=== PATIENT | male | born 1945 | race Caucasian/White ===

== ENCOUNTER → 2017-04-15 15:31 | Outpatient (CLI) | payer MEDICARE, OTHER, SELFPAY ==
--- NOTE | 2017-04-15 16:00 | MRI_ITS ---
STUDY: MRI LUMBAR SPINE WITHOUT CONTRAST REASON FOR EXAM: Male, 71 years old. RIGHT leg pain TECHNIQUE: Standardized fat and water weighted pulse sequences were obtained in the sagittal and axial planes. COMPARISON: None FINDINGS: T12-L1: Normal endplates. Normal disc height, hydration and morphology. Normal bilateral facet joints. Normal central canal and bilateral lateral recesses. Normal bilateral intervertebral neural foramina. There is straightening of the normal lumbar lordosis. There is no substantial scoliosis. Normal conus medullaris that terminates at the L1 level. L1-2: There is moderate loss of disc height. There is RIGHT lateral disc bulging causing severe RIGHT foraminal stenosis. There is mild spinal stenosis and mild LEFT foraminal stenosis. There is moderate bilateral facet hypertrophy. L2-3: There is bilateral facet hypertrophy. There is NO disc bulge or herniation. There is NO significant spinal stenosis. There is moderate bilateral foraminal stenosis. L3-4: There is bilateral facet hypertrophy. There is NO disc bulge or herniation. There is NO spinal stenosis. There is moderate bilateral foraminal stenosis. L4-5: There is grade 1 anterior spondylolisthesis due to facet arthropathy. There is broad-based disc bulging. There is moderate spinal stenosis. There is severe bilateral foraminal stenosis. L5-S1: There is mild disc bulging. There is bilateral facet hypertrophy. There is NO spinal stenosis. There is severe bilateral foraminal stenosis. Paraspinal soft tissues are unremarkable. MRI/Spine Lumbar (Routine) IMPRESSION: There is NO fracture. There is NO disc herniation or cord compression. There are multilevel degenerative changes as described causing stenosis as described. There is grade 1 anterior spondylolisthesis of L4 over L5 due to facet arthropathy. Electronically Signed: Jose Barrera MD at 7:06 EST , Service support ,
== END ==
PROVIDERS: Family Provider Family Medicine; PCP Family Medicine
DX: M51.06 Intervertebral disc disorders with myelopathy, lumbar region (principal); S32.009A Unspecified fracture of unspecified lumbar vertebra, initial encounter for closed fracture; G90.09 Other idiopathic peripheral autonomic neuropathy
CPT/HCPCS: 72148

== ENCOUNTER → 2018-07-15 | Outpatient (CLI) | payer MEDICARE, OTHER, SELFPAY ==
--- NOTE | 2018-07-15 09:28 | RAD_ITS ---
STUDY: X-RAY - LUMBAR SPINE REASON FOR EXAM: Male, 72 years old. Radiculopathy with sciatica down the left leg TECHNIQUE: 5 view(s) of the lumbar spine were obtained. COMPARISON: None FINDINGS: Normal lumbar lordosis. There is no substantial scoliosis. There is a normal alignment of the vertebrae. There is multilevel endplate spondylosis of the lumbar vertebrae. There is multi-level degenerative disc disease with multi-level disc space narrowing. There is no demonstrated fracture. The soft tissue structures are unremarkable. RAD/L/S Spine Min 4 Views IMPRESSION: Degenerative changes of the spine, as detailed above. Electronically Signed: Erlin Whitaker DO at 9:16 EDT Tel , Service support ,
== END | disposition home or self-care (01) ==
LOC: RAD 09:28
PROVIDERS: Family Provider Family Medicine; PCP Family Medicine; Referring Provider Anesthesiology Pain Medicine; Visit Provider Anesthesiology Pain Medicine
DX: M51.37 Other intervertebral disc degeneration, lumbosacral region (principal); M54.17 Radiculopathy, lumbosacral region
CPT/HCPCS: 72110

== ENCOUNTER → 2018-09-14 | Outpatient (CLI) | payer MEDICARE, OTHER, SELFPAY ==
--- NOTE | 2018-09-14 07:56 | US_ITS ---
PROCEDURES: ULTRASOUND AORTA REASON FOR EXAM: Male, 73 years old. AAA screening. TECHNIQUE: Ultrasound evaluation of the aorta was performed with real-time and static miller-scale imaging. Imaging was limited by patient body habitus COMPARISON: None. FINDINGS: There is no elongation or tortuosity of the abdominal aorta. Aorta measures: Proximal 1.6 cm. Middle 1.9 cm. Distal 2.0 cm. Aorta measure transversely: Proximal 1.7 cm. Middle 2.2 cm. Distal 1.7 cm. Right iliac artery patent with flow evident on color Doppler. The margins of the vessel could not be adequately demonstrated for diameter measurements, however. Left iliac artery patent with flow evident on color Doppler. The margins of the vessel could not be adequately demonstrated for diameter measurements, however. US/Aorta IMPRESSION: Ultrasound evaluation of the abdominal aorta limited by patient body habitus. 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 Electronically Signed: Gume Nayak MD at 13:07 EDT , Service support ,
== END | disposition home or self-care (01) ==
LOC: US 07:53
PROVIDERS: Family Provider Family Medicine; PCP Family Medicine
DX: I71.4 Abdominal aortic aneurysm, without rupture (principal)
CPT/HCPCS: 76775

== ENCOUNTER → 2018-09-25 | Outpatient (CLI) | payer MEDICARE, OTHER, SELFPAY | END | disposition home or self-care (01) | LOC: SL 20:54 | PROVIDERS: Family Provider Family Medicine; PCP Family Medicine | DX: G47.33 Obstructive sleep apnea (adult) (pediatric) (principal) | CPT/HCPCS: 95810; 95811 ==

== ENCOUNTER → 2018-10-07 | Outpatient (CLI) | payer MEDICARE, OTHER, SELFPAY ==
--- NOTE | 2018-10-07 12:38 | VDLE_ITS ---
Reason For Study: DVT RIGHT LEFT GSV is normal. GSV is normal. CFV is compressible, spontaneous, phasic, CFV is compressible, spontaneous, phasic, competent and demonstrates normal competent, and demonstrates normal augmentation. augmentation. FV is compressible, spontaneous, phasic, FV is compressible, spontaneous, phasic, competent and demonstrates normal competent and demonstrates normal augmentation. augmentation. POP V is compressible, spontaneous, phasic, POP V is compressible, spontaneous, phasic, competent and demonstrates normal competent and demonstrates normal augmentation. augmentation. T/P Trunk is compressible. T/P Trunk is compressible. PTV is compressible. PTV is compressible. RT PerV is compressible. LT PerV is compressible. Procedure Exam performed in department. A preliminary report was called and/or faxed to Call @ [phone] and left message, not in office on friday. Interpretation Summary Deep veins of the lower extremities are bilaterally patent and compressible segmentally. There is no evidence of deep vein thrombosis on either side. Valvular competence appears intact within the proximal deep venous systems bilaterally. The greater saphenous veins appear bilaterally patent and compressible segmentally. Ordering Physician: MARGARET BOYKIN Referring Physician: Jay Cat M.D. Performed By: Michelle Gomes RVT
== END | disposition home or self-care (01) ==
LOC: SL 12:35
PROVIDERS: Family Provider Family Medicine; PCP Family Medicine
DX: I82.423 Acute embolism and thrombosis of iliac vein, bilateral (principal); G47.33 Obstructive sleep apnea (adult) (pediatric)
CPT/HCPCS: 93970; 98960; G0463

== ENCOUNTER → 2018-11-17 | Outpatient (CLI) | payer MEDICARE, OTHER, SELFPAY | END | disposition home or self-care (01) | PROVIDERS: Family Provider Family Medicine; PCP Family Medicine | DX: G47.33 Obstructive sleep apnea (adult) (pediatric) (principal) | CPT/HCPCS: 95811 ==

== ENCOUNTER → 2019-03-26 10:24 | Outpatient (CLI) | payer MEDICARE, OTHER, SELFPAY ==
--- NOTE | 2019-03-26 10:27 | RAD_ITS ---
STUDY: X-RAY - PELVIS AND RIGHT HIP REASON FOR EXAM: Male, 73 years old. RIGHT HIP PAIN TECHNIQUE: 3 views of the pelvis and hip. COMPARISON: None. FINDINGS: There is a non-specific bowel gas pattern. Normal visualized soft tissue structures. Normal bilateral iliac wings, sacroiliac joints and visualized sacrum. Normal bilateral superior and inferior pubic rami. Normal pubic symphysis. Normal bilateral ischial tuberosities. Normal visualized femoral head. Normal acetabulum. Normal hip joint. RAD/HIP, UNI W/ Pelvis 2-3 Views IMPRESSION: Normal x-ray examination of the pelvis and hip. Electronically Signed: Greyson Lamar DO at 8:05 EST Tel [phone], Service support ,
== END ==
PROVIDERS: Family Provider Family Medicine; PCP Family Medicine; Referring Provider Nurse Practitioner Family; Visit Provider Nurse Practitioner Family
DX: M25.551 Pain in right hip (principal)
CPT/HCPCS: 73502

== ENCOUNTER → 2022-11-19 | Outpatient (CLI) | payer MEDICARE, OTHER, SELFPAY ==
--- NOTE | 2022-11-19 08:27 | CT_ITS ---
STUDY: CT ABDOMEN AND PELVIS WITH CONTRAST REASON FOR EXAM: Male, 77 years old. LT TESTICULAR PAIN RADIATION DOSAGE (If Supplied By Facility): CTDIvol = ( 17.07 ) mGy, DLP = ( 1333.95 ) mGycm TECHNIQUE: IV 100mL [id number]-[id number] was administered. Transaxial images were obtained from the dome of the diaphragm to the symphysis pubis. Multiplanar coronal and sagittal images were reformatted. Individualized Dose Optimization Techniques Were Used For This CT. COMPARISON: No prior examinations are available for comparison. FINDINGS: The visualized lung bases are unremarkable. The visualized portions of the heart are within normal limits. Coronary calcifications. Unremarkable liver. There are surgical clips in the gallbladder fossa consistent with a prior cholecystectomy. Normal spleen. There is diffuse atrophy of the pancreas. Normal bilateral adrenal glands. 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 No evidence of hydronephrosis. Nonspecific mild perinephric stranding. Normal visualized stomach. Normal in caliber in caliber small bowel loops. Fecal retention. Diverticulosis without evidence of acute diverticulitis. The appendix is visualized and appears normal. Normal abdominal aorta. No retroperitoneal adenopathy. Circumferential thickening of the bladder wall probably due to underdistention. Prominent prostate. Balloon in the right side of the lower pelvis of undetermined etiology and may represent penile prosthesis pump. Normal abdominal wall. Multilevel degenerative changes of the spine. Grade 1 retrolisthesis of L5 with respect to L4 and S1. CT/Abdomen/Pelvis W IV Cont ONLY IMPRESSION: 1. No focal acute inflammatory process. 2. Circumferential thickening of the bladder wall probably due to underdistention. Cystitis less likely. 3. Prominent prostate. 4. Balloon on the right side of the lower pelvis could represent partially visualized penile prosthesis pump. Electronically Signed: Hu Chaney MD at 10:59 EDT ,
[2022-11-19 08:56] LABS: CREATININE FINGERSTICK < 0.9 mg/dL (0.70-1.30); EGFR FINGERSTICK > 60.0000 mL/min (>60)
== END | disposition home or self-care (01) ==
PROVIDERS: PCP Preventive Medicine Occupational Medicine; Referring Provider Urology; Visit Provider Urology
DX: N50.812 Left testicular pain (principal)
CPT/HCPCS: 74177; Q9967

== ENCOUNTER → 2022-11-26 | Outpatient (CLI) | payer MEDICARE, OTHER, SELFPAY ==
[2022-11-26 10:44] LABS: PSA,Total - Annual Screen 1.63 ng/mL (0.00-4.00)
== END | disposition home or self-care (01) ==
LOC: LAB 09:34
PROVIDERS: PCP Preventive Medicine Occupational Medicine; Referring Provider Urology; Visit Provider Urology
DX: Z12.5 Encounter for screening for malignant neoplasm of prostate (principal)
CPT/HCPCS: 36415; 84153; G0103

== ENCOUNTER → 2023-05-14 | Outpatient (CLI) | payer MEDICARE, OTHER, SELFPAY ==
--- OUTSIDE RECORDS SUMMARY | 2023-05-14 06:16 | XMS RPT_ITS | CCD ---
Author Name Unknown Address [address] [place] [address] Organization [facility] Care Team Providers Care X Ray Examiner Of Aircraft Name Role Phone Jay Cat Unavailable Unavailable Jay Cat Unavailable Unavailable MANDY SENIOR Unavailable Unavailable ISAK WALLIS Unavailable Unavailable JAY CAT Unavailable Unavailable JAY CAT Unavailable Unavailable ANDREWS JURADO JR. Unavailable Unavailab ANDREWS Dye JR. Unavailable Unavailab JAY Hines Unavailable Unavailable JAY CAT Unavailable Unavailable Jay Cat Referring Unavailable Jay Cat Primary Care Unavailable Laly Iniguez Attending Unavailable OBEY HOWELL DO Primary Care Physician [phone] Max Hooks MD Unavailable [phone] [facility] Primary Care Provider [facility] Primary Care Provider MAURILIO SALDANA Attending Unavailable MAURILIO SALDANA Referring Unavailable LAMBERTNABILA MASTERSON Attending Unavailable LAMBERT, NABILA Referring Unavailable LAMBERT, NABILA Referring Unavailable LAMBERT, NABILA Referring Unavailable LAMBERT, NABILA Referring Unavailable LAMBERT, NABILA Referring Unavailable OBEY HOWELL DO Primary Care Physician [phone] OBEY HOWELL DO Attending Unavailable OBEY HOWELL DO Primary Care Unavailable OBEY HOWELL DO Attending Unavailable OBEY HOWELL DO Primary Care Unavailable Max Hooks MD Unavailable [phone] [facility] Primary Care Provider Allergies Allergy Classification Reported Allergen(s) Allergy Type Date of Onset Reaction(s) Facility (4 sources) Baclofen; Translations: [baclofen] Drug Allergy Clouded consciousness (finding) [facility] Work Phone: Medications Current Medications Medication Drug Class(es) Dates Sig (Normalized) Sig (Original) azelastine hydrochloride 0.137 mg/actuat metered dose nasal spray (14 sources) Histamine-1 Receptor Antagonist Start: 01-23-2021 azelastine 137 mcg/inh (0.1%) nasal spray Dose = 2 spray(s), Intranasal, BID, # 3 EA, 3 Refill(s), Pharmacy: [facility], 176, cm, 01/22/21 9:30:00 EST, Height, kg, 01/22/21 9:30:00 EST, Dosing Weight Start Date: 01/23/21 Status: Ordered Completed/Discontinued Medications Medication Drug Class(es) Dates Sig (Normalized) Sig (Original) acetaminophen 325 mg / oxyCODONE hydrochloride 7.5 mg oral tablet (16 sources) Opioid Agonist Start: 03-14-2022 acetaminophen-oxyc odone 325 mg-7.5 mg oral tablet Dose = 1 tab(s), Oral, q6h, PRN for pain, 0 Refill(s), 121 Start Date: 03/14/22 Status: Ordered Problems Active Problems Problem Classification Problem Date Documented Date Episodic/Chronic Abdominal pain (6 sources) Lower abdominal pain, unspecified; Translations: [Abdominal pain] Onset: 12-19-2017 07-17-2021 Episodic Allergic reactions (6 sources) Allergy status to other antibiotic agents status; Translations: [Allergic disposition] Onset: 12-19-2017 01-22-2021 Episodic Coronary atherosclerosis and other heart disease (6 sources) Atherosclerotic heart disease of andreafski coronary artery without angina pectoris; Translations: [Coronary arteriosclerosis] Onset: 12-19-2017 06-24-2013 Chronic Past or Other Problems Problem Classification Problem Date Documented Date Episodic/Chronic Abdominal hernia (12 sources) Left inguinal hernia ; Translations: [Unilateral inguinal hernia, without obstruction or gangrene, not specified as recurrent] Onset: 04-04-2015 04-04-2015 Episodic Bacterial infection; unspecified site (2 sources) Personal history of Methicillin resistant Staphylococcus aureus infection; Translations: [Personal history of methicillin resis staph infection] Onset: 12-19-2017 Episodic Nonspecific chest pain (2 sources) Chest pain, unspecified; Translations: [Chest pain, unspecified] Onset: 11-03-2016 Episodic Other aftercare (2 sources) rat exterminator (current) use of insulin; Translations: [shelter (current) use of insulin] Onset: 12-19-2017 Episodic Other male genital disorders (12 sources) Hemospermia; Translations: [Hematospermia] Onset: 09-11-2016 09-11-2016 Episodic Other nervous system disorders (12 sources) Numbness of face; Translations: [Anesthesia of skin] Onset: 10-29-2019 11-04-2019 Episodic Residual codes; unclassified (2 sources) Acquired absence of other specified parts of digestive tract; Translations: [Acquired absence of other specified parts of digestive tract] Onset: 12-19-2017 Episodic Screening and history of mental health and substance abuse codes (2 sources) Personal history of nicotine dependence; Translations: [Personal history of nicotine dependence] Onset: 12-19-2017 Episodic Superficial injury; contusion (2 sources) Contusion of unspecified front wall of thorax, initial encounter; Translations: [Contusion of unspecified front wall of thorax, init encntr] Onset: 12-19-2017 Episodic Unclassified (2 sources) Procedure and treatment not carried out due to patient leaving prior to being seen by health care provider; Translations: [Proc/trtmt not crd out d/t pt lv bef seen by [facility] care prov] Onset: 11-03-2016 Episodic Unclassified (1 source) INFECTED SURGICAL WOUND/CELLULITIS Onset: 09-11-2016 Results Test Name Value Interpretation Reference Range Facil ity Vital Signs Date Time Vital Sign Value Performing Clinician Geovanna mcdonough 11-29-2021 13:21-0400 Body height 180.3 cm Nabila Lambert APRN.CNP Work Phone: [facility] 11-29-2021 13:21-040 Body weight 122.47 kg Nabila Lambertjean FLOOD Work Phone: [facility] 11-29-2021 13:21-0400 Diastolic blood pressure 70 mm[Hg] Nabila Lambertjean FLOOD Work Phone: [facility] 11-29-2021 13:21-0400 Heart rate 70 /min Nabila Lambert APRN.CNP Work Phone: [facility] 11-29-2021 13:21-0400 Systolic blood pressure 118 mm[Hg] Nabila Lambert APRN.CLOD PULLER Work Phone: [facility] 11-01-2021 08:51-0400 Body height 180.3 cm Maurilio Saldana MD Work Phone: [facility] 11-01-2021 08:51-0400 Body weight 121.56 kg Maurilio Saldana MD Work Phone: [facility] 11-01-2021 08:51-0400 Diastolic blood pressure 72 mm[Hg] Maurilio Saldana MD Work Phone: [facility] 11-01-2021 08:51-0400 Heart rate 90 /min Maurilio Saldana MD Work Phone: [facility] 11-01-2021 08:51-0400 Systolic blood pressure 128 mm[Hg] Maurilio Saldana MD Work Phone: [facility] Encounters Encounter Date Encounter Type Care Provider Facility Start: 05-07-2023 Patient encounter procedure [facility] Provider [facility] Department Start: 04-10-2023 End: 04-11-2023 ambulatory OBEY HOWELL DO Facility:B Start: 10-25-2022 End: 10-26-2022 ambulatory OBEY HOWELL DO Facility:[facility] Start: 03-14-2022 End: 03-14-2022 Patient encounter procedure OBEY HOWELL DO [facility] Start: 12-31-2021 Telephone encounter Nabila Lambert APRN.CLOD PULLER Work Phone: [facility] Procedures Date Procedure Procedure Detail Performing Clinician Start: 03-03-2018 Cataract surgery OBEY HOWELL DO Plan of Treatment Date Care Activity Detail Author Start: 12-20-2027 Urine microalbumin profile DTaP,Tdap,Td Vaccine (2 - Td or Tdap) [facility] Start: 03-17-2023 Advance Directive Discussion Advance Directive Discussion [facility] Start: 03-17-2023 Depression Assessment Depression Ass essment [facility] Start: 11-15-2022 Covid-19 Vaccine () Covid-19 Vaccine () [facility] Start: 11-15-2022 Influenza vaccination Influenza Vacc ine (#1) [facility] Start: 10-31-2022 DIABETES SCREEN [facility] Start: 10-31-2022 Diabetes Screening Diabetes Screenin g [facility] Start: 12-07-2021 End: 02-06-2022 CREATININE BLD CREATININE BLD Lab STAT Abnormal x-ray of abdomen Expected: 12/07/2021, Expires: 02/06/2022 [facility] Work Phone: Immunizations Immunization Date Immunization Notes Care Provider Bhaskar mohan 12-19-2021 influenza, high dose seasonal, preservative-free OBEY HOWELL DO [facility] 12-19-2021 influenza virus vaccine, unspecified formulation [facility] Provider [facility] 05-25-2020 SARS-CoV-2 (COVID-19 ) mRNA-1273 vaccine [facility] Payers Date Payer Category Payer Medicare [id number] 2014 Private Health Insurance [facility] AAR SUPPLEMENT [id number] 2014-Present [phone] [address] [place] [address] Indemnity [id number] 2013 Private Health Insurance [id number] 1997 Medicare 1997 Medicare [id number] 1945 Unknown [id number] 1945 Unknown [id number] 1945 Unknown [id number] Unknown Social History Date Type Detail Facility Start: 09-14-2018 Never smoked t obacco (finding) [facility] Sex Assigned At Male [facility] Start: 11-01-2021 Tobacco smoking stat us MDIS Ex-smoker [facility] End: 05-05-1975 History of tobacco use Current smoker [facility] End: 05-05-1975 History of tobacco use Cigarette Smoker [facility] Start: 11-01-2021 End: 04-02-2023 Cigarettes smoked current (pack per day) - Reported 2 [facility] Start: 11-01-2021 Tobacco use and exposure Smoke less tobacco non-user [facility] Start: 11-01-2021 End: 11-29-2021 Alcohol intake Current drinker of alcohol (finding) [facility] Start: 10-30-2019 History SDOH Alcohol Comment rare [facility] Start: 11-01-2019 History SDOH Financial 4 [facility] Start: 11-01-2019 History SDOH Food Worry 1 [facility] Start: 11-01-2019 History SDOH Transport Med 2 [facility] Start: 1945 Sex Assigned At Not on file [facility] Start: 10-22-2021 End: 12-07-2021 Exposure to SARS-CoV-2 (event) Not sure [facility] Start: 11-29-2021 End: 04-02-2023 Tobacco use panel [facility] How hard is it for y ou to pay for the very basics like food, housing, medical care, and heating Not very hard [facility] (I/We) worried wheth er (my/our) food would run out before (I/we) got money to buy more. Never true [facility] In the past 12 month s, has lack of transportation kept you from medical appointments or from getting medications? No [facility] Medical Equipment Procedure Code Equipment Code Equipment Origin al Text Equipment Identifier Dates Blood Glucose Te st Strips Start: 08-24-[address]ps Start: 08-24-2019 See Instructions , Dispense Accucheck Guide, #360, UAD QID; tests frequently due to fluctuating blood sugars, # 360 EA, 3 Refill(s), [facility], Diabetes mellitus, 177, cm, 08/24/19 14:58:00 EDT, Height, 122.1, kg, 08/24/19 14:5... Start: 08-24-2019 Prosthesis Ams 7 00 Penile Accessory Kit - [id number] Start: 05-18-2015 Prosthesis Ams 7 00 Ms Pump Inhibizone Penile Preconnect Inflatable - [id number] Start: 05-18-2015 TEST BLOOD SUGAR four times a day for FLUCTUATING BLOOD SUGARS Start: 10-07-2019 Clinical Notes 11-01-2021 to 12-31-2021 Telephone Encounter - [place] Ma - 12/31/2021 3:56 PM EDTTelephone Encounter - Nabila Lambert APRN.CNP - 12/19/2021 9:51 PM EDTTelephone Encounter - Nabila Lambert APRN.CNP - 12/19/2021 2:23 PM EDT Note Date & Type Note Facility 12-31-2021 Miscellaneous Notes Returned patient call, left voicemail to return call as needed. [place] [employer] [facility] documented in this encounter [facility] 12-19-2021 Miscellaneous Notes Patient called back and states that he is currently still taking the 290Linzess having liquid diarrhea and then changed it to every other day with no improvement continued liquid diarrhea. The plan will be to try the 145mcg for the next two weeks. Thanks Nabila Lambert APRN.CNP documented in this encounter [facility] 12-19-2021 Miscellaneous Notes Called patient to discuss lower dose of medication. No answer left my number to call back. Nabila Lambert APRN.CNP documented in this encounter [facility] 12-18-2021 Miscellaneous Notes Spoke with pt again and now he states that he is still having diarrhea doing every other day. He was doing a little better but now he is back to diarrhea. Keturah Alamo Ma I recommend that he use this every other day 290mcg - Nabila Lambert APRN.CHRISTINE Pt notified of CT results. Pt states that the Linzess 290mcg is giving him diarrhea and completely clearing out . He states that he backed it down to every other day and seems to be doing better. Should he just take it every other day and she how he does or give him a weaker strength? Keturah Alamo Ma documented in this encounter [facility] 12-10-2021 Note HNO ID: [id number] Author: RT Trell(R) Service: ? Author Type: Icu Manager Type: Progress Notes Filed: 12/10/2021 12:15 PM Note Text: Radiology Service Progress Note DATE OF SERVICE: December 10, 2021 TIME: 12:14 PM PATIENT IDENTITY VERIFICATION COMPLETED USING TWO (2) STANDARD IDENTIFIERS: Name and Date of confirmed by patient verbally. FALL SCREENING: Has the patient had 2 falls in the last year or 1 fall with injury or currently using an Ambulatory Assistive Device (Walker, Cane, Wheelchair, Crutches, etc.)? No PATIENT GENDER DATA: Male PATIENT RELEVANT IMPLANT DATA REVIEWED: Yes ALLERGIES: Reviewed and unchanged CONTRAST ALLERGY: NO. EXAM: CT -CONTRAST INDUCED NEPHROPATHY RISK FACTORS: Patient age > 60 years CREATININE: Creatinine Date Value Ref Range Status 12/10/2021 0.81 0.73 - 1.22 mg/dL Final 11/01/2019 0.88 0.73 - 1.22 mg/dL Final 10/30/2019 0.75 0.73 - 1.22 mg/dL Final Estimated Glomerular Filtration Rate Date Value Ref Range Status 12/10/2021 91 >=60 mL/min/1.73m? Final Comment: Estimated Glomerular Filtration Rate (eGFR) is calculated using the 2020 CKD-EPI creatinine equation. This equation utilizes serum creatinine, sex, and age as parameters. The creatinine assay has traceable calibration to isotope dilution-mass spectrometry. Refer to KDIGO guidelines for clinical interpretation. In patients with unstable renal function, e.g. those with acute kidney injury, the eGFR may not accurately reflect actual GFR. eGFR- Date Value Ref Range Status 05/16/2015 >60 Final P.O.C.T. RESULTS: POC done: Yes, See Lab Tab December 10, 2021 TREATMENT: N/A PERIPHERAL IV DATA: Ambulatory: A peripheral IV was started in the Left hand with a Angio cath: 22 gauge. RADIOLOGY DEPARTMENT: CT; Exam(s) Completed: Abdomen/Pelvis SIGNATURE: RT Elliot(R) PATIENT NAME: Neo Interiano DATE: December 10, 2021 TIME: 12:14 PM [facility] 12-07-2021 Miscellaneous Notes Thanks done Nabila Lambert APRN.CLOD PULLER Please place order for stat creatinine order for pt , pt appt 12/10/[address] , can you changed the lab order to a stat so the pt can do the labs on the same day please documented in this encounter [facility] 12-05-2021 Miscellaneous Notes Called patient and left VM. Patient has decrease amount of stool burden since taking the Golytely. I have ordered Linzess 290mcg to take first thing in the morning on empty stomach. 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 There was a incidental finding on both XRAYS - Round peripherally calcified 6.5 cm radiodensity projecting over the right pelvis. This is of uncertain definite etiology and either further evaluation with pelvic ultrasound or cross-sectional imaging may be made as clinically indicated. - So I went ahead and ordered a CT of the abd and pelvis. Miryam Dahl documented in this encounter [facility] 12-05-2021 Note HNO ID: [id number] Author: RT Debbie(R) Service: Radiology Author Type: Technologist Type: Progress Notes Filed: 12/05/2021 8:47 AM Note Text: Radiology Service Progress Note PATIENT NAME: Neo Interiano DATE OF SERVICE: December 05, 2021 TIME: 8:34 AM PATIENT IDENTITY VERIFICATION COMPLETED USING TWO (2) IDENTIFIERS: Name and Date of confirmed by patient verbally. FALL SCREENING: Has the patient had 2 falls in the last year or 1 fall with injury or currently using an Ambulatory Assistive Device (Walker, Cane, Wheelchair, Crutches, etc.)? No PATIENT GENDER DATA: Male PATIENT RELEVANT IMPLANT DATA REVIEWED: Yes RADIOLOGY DEPARTMENT: General X-ray: Exam(s) Completed: Abdomen X-Ray: Abdomen PERIPHERAL IV DATA: Not applicable SIGNED BY: RT Debbie(R) December 05, 2021 8:34 AM [facility] 12-04-2021 Miscellaneous Notes Called patient discuss bowel cleanse with Golytely and then repeat XR and then possible start Linzess - Nabila documented in this encounter [facility] 11-29-2021 Note HNO ID: [id number] Author: Conchita Huff RT(R) Service: Nuclear Medicine Author Type: Technologist Type: Progress Notes Filed: 11/29/2021 2:51 PM Note Text: Radiology Service Progress Note PATIENT NAME: Neo Interiano DATE OF SERVICE: November 29, 2021 TIME: 2:38 PM PATIENT IDENTITY VERIFICATION COMPLETED USING TWO (2) IDENTIFIERS: Name and Date of confirmed by patient verbally. FALL SCREENING: Has the patient had 2 falls in the last year or 1 fall with injury or currently using an Ambulatory Assistive Device (Walker, Cane, Wheelchair, Crutches, etc.)? No PATIENT GENDER DATA: Male PATIENT RELEVANT IMPLANT DATA REVIEWED: Not Applicable RADIOLOGY DEPARTMENT: General X-ray: Exam(s) Completed: Abdomen X-Ray: Abdomen PERIPHERAL IV DATA: Not applicable SIGNED BY: RT Huyen(R) November 29, 2021 2:38 PM [facility] 11-29-2021 Note HNO ID: [id number] Author: Nabila Lambert APRN.CLOD PULLER Service: ? Author Type: Nurse Practitioner Type: Progress Notes Filed: 12/03/2021 11:08 PM Note Text: CHIEF COMPLAINT: Patient presents with: Constipation: Stringy stools feels like he possibly has a blockage. HPI Neo Interiano is a 76 year old male here today for constipation (Stringy stool hard to push out. XR/Labs 07/18/21 in [facility] Colonoscopy 04/07/2018: Impression: - Diverticulosis in the sigmoid colon. No specimens collected. Patient reports he is still constipated and straining a lot with stools. He reports he tried the Movantik and reports this did not help with constipation. PAtient is very frustrated because the medication was expensive and is not helping. Denies black stools or blood in stools. He reports daily BM small amounts. Has tried Senna and fiber (metamucil), suppositories without relief. Patient reports he has chronic back pain and takes oxycodone. Current Outpatient Medications Medication Sig SENNA PLUS 8.6-50 mg per tablet take 1 tablet by mouth at bedtime for constipation naloxegol (MOVANTIK) 25 mg tablet Take 1 tablet by mouth once daily. aspirin 325 mg tablet 325 mg. ACCU-CHEK GUIDE TEST STRIPS test strip TEST BLOOD SUGAR four times a day for FLUCTUATING BLOOD SUGARS azelastine (ASTELIN,ASTEPRO) 0.1% nasal spray oxyCODONE-acetaminophen (PERCOCET) 7.5-[address] (PROTONIX) 40 mg tablet omega-3 acid ethyl esters (LOVAZA) 1 gram capsule nitroglycerin sublingual (NITROQUICK) 0.4 mg SL tablet 0.4 mg. diclofenac sodium (VOLTAREN) 1 % topical gel montelukast (SINGULAIR) 10 mg tablet Take 10 mg by mouth once daily. furosemide (LASIX) 40 mg tablet 40 mg as needed. clopidogrel (PLAVIX) 75 mg tablet Take 1 tablet by mouth once daily. atorvastatin (LIPITOR) 40 mg tablet Take 1 tablet by mouth daily at bedtime. insulin NPH-insulin regular (HumuLIN 70/30) pen Inject 70 Units subcutaneously twice daily with meals. gabapentin (NEURONTIN) 800 mg tablet Take 1 tablet by mouth three times daily for 30 days. celecoxib (CELEBREX) 200 mg capsule Take 200 mg by mouth once daily. traZODone (DESYREL) 100 mg tablet Take 200 mg by mouth daily at bedtime. carbidopa-levodopa (SINEMET 25-250) 25-250 mg per tablet Take 1 tablet by mouth once daily. Ascorbic Acid 1,000 mg tablet Take 1,000 mg by mouth twice daily. clobetasol (TEMOVATE) 0.05 % ointment Apply 1 application to affected area twice daily. Apply twice daily to penis for 2 weeks, then no applications for to weeks, then repeat twice daily for 2 weeks tamsulosin ER (FLOMAX) 0.4 mg cp24 Take 1 capsule by mouth once daily. docusate sodium (COLACE) 100 mg capsule Take 1 capsule by mouth twice daily. While taking narcotics to prevent constipation pioglitazone (ACTOS) 45 mg tablet Take 22.5 mg by mouth once daily. olmesartan (BENICAR) 40 mg tablet Take 20 mg by mouth once daily. citalopram (CELEXA) 40 mg tablet Take 40 mg by mouth once daily. MULTI-VITAMIN ORAL Take 1 tablet by mouth once daily. No current facility-administered medications for this visit. ALLERGIES No Known Allergies Social History Tobacco Use Smoking status: Former Packs/day: 2.00 Years: 20.00 Pack years: 40.00 Types: Cigarettes Quit date: 05/05/1975 Years since quittin.6 Smokeless tobacco: Never Vaping Use Vaping Use: Never used Substance Use Topics Alcohol use: Yes Comment: rare Drug use: No PAST MEDICAL HISTORY Diagnosis Date Back pain Colon polyps Diabetes mellitus (HCC) Ex-smoker quit in 1975 Gallstones Hemorrhoids Hypertension MVP (mitral valve prolapse) Neuropathy S/P CABG x 5 2003 PAST SURGICAL HISTORY Procedure Laterality Date CATARACT EXTRACTION HX CHOLECYSTECTOMY COLONOSCOPY COLONOSCOPY SCREENING 04/07/2018 Diverticulosis PAST SURGICAL HISTORY OF 2003 5V CABG in 2003 S $ PROSTHESIS PENILE INFLATABLE SHX AORTIC VALVE REPLACEMENT SINUS SURGERY HX FAMILY HISTORY Problem Relation Age of Onset Hypertension Mother Hyperlipidemia Mother Diabetes Mother Stroke Mother Hypertension Father Hyperlipidemia Father Diabetes Father Heart Failure Father Diabetes Sister Diabetes Sister Diabetes Sister Cancer Sister brain Diabetes Brother Colon Cancer No Family History REVIEW OF SYSTEMS Review of Systems Constitutional: Positive for activity change and appetite change. Gastrointestinal: Positive for constipation. Change in bowel habits All other systems reviewed and are negative. PHYSICAL EXAM BP 118/70 Pulse 70 Ht 5' 11 (1.80m) Wt 270 lb (122.5kg) BMI 37.67 kg/(m2). Physical Exam Constitutional: Appearance: Normal appearance. He is obese. HENT: Head: Normocephalic and atraumatic. Eyes: Extraocular Movements: Extraocular movements intact. Pupils: Pupils are equal, round, and reactive to light. Cardiovascular: Rate and Rhythm: Normal rate and (more content not included)... [facility] 11-29-2021 History of Presen t illness Narrative Radiology Service Progress Note PATIENT NAME: Neo Interiano DATE OF SERVICE: November 29, 2021 TIME: 2:38 PM PATIENT IDENTITY VERIFICATION COMPLETED USING TWO (2) IDENTIFIERS: Name and Date of confirmed by patient verbally. FALL SCREENING: Has the patient had 2 falls in the last year or 1 fall with injury or currently using an Ambulatory Assistive Device (Walker, Cane, Wheelchair, Crutches, etc.)? No PATIENT GENDER DATA: Male PATIENT RELEVANT IMPLANT DATA REVIEWED: Not Applicable RADIOLOGY DEPARTMENT: General X-ray: Exam(s) Completed: Abdomen X-Ray: Abdomen PERIPHERAL IV DATA: Not applicable SIGNED BY: RT Huyen(R) November 29, 2021 2:38 PM documented in this encounter [facility] 11-29-2021 Instructions Nabila Lambert APRN.CHRISTINE - 11/29/2021 1:43 PM EDT Images from the original note were not included. XR ABD - for constipation I will call you to let know the results and from there I will provide a plan Bowel Preparation Instructions for: Golytely, Nulytely, Trilyte or Colyte (polyethylene glycol 3350 and electrolytes) IF YOU DO NOT FOLLOW THESE DIRECTIONS, YOUR COLONOSCOPY WILL BE CANCELLED. [place] Instructions: Your bowel must be empty so that your doctor can clearly view your colon. Follow all of the instructions in this handout EXACTLY as they are written. Do NOT eat any solid food the ENTIRE day before your colonoscopy. Drink only clear liquids. Buy your bowel preparation at least 5 days before your colonoscopy. TRANSPORTATION on the Day of Your Exam A responsible person MUST be present with you at Check In prior to your colonoscopy and REMAIN in the endoscopy area until you are discharged. You are NOT ALLOWED to drive, take a taxi or bus, or leave the Endoscopy Center ALONE. If you do not have a responsible regional tanker truck driver (family member or friend) with you to take you home, your exam cannot be done with sedation and will be cancelled. Please bring a list of all of your current medications, including any Over-the Counter medications with you. Medications If you take insulin, diabetic medications or blood thinners such as Coumadin (warfarin), Plavix (clopidogrel), Ticlid (ticlopidine hydrochloride), Agrylin (anagrelide), Xarelto (Rivaroxaban), Pradaxa (Dabigatran), Eliquis (Apixaban), and Effient (Prasugrel). You MUST call the doctors who orders those medicines for instructions on altering the dosage before your colonoscopy. All other medications should be taken the day of the exam with a sip of water including ASPIRIN. Five (5) Days Before Your Colonoscopy Do NOT take medicines that stop diarrhea - such as Imodium, Kaopectate, or Pepto Bismol. Do NOT take fiber supplements - such as Metamucil, Citrucel, or Perdiem. Do NOT take products that contain iron - such as multi-vitamins (the label lists what is in the products). Do NOT take Vitamin E. Buy the prescription bowel preparation solution at your local pharmacy or drugstore pharmacy. 1 02/2019 Bowel Preparation Instructions for: Golytely, Nulytely, Trilyte or Colyte (polyethylene glycol 3350 and electrolytes) Three (3) Days Before Your Colonoscopy Do NOT eat high-fiber foods - such as popcorn, beans, seeds (flax, sunflower, quinoa), multigrain bread, nuts, salad/vegetables, or fresh and dried fruit. One (1) Day Before Your Colonoscopy Only drink clear liquids the ENTIRE DAY before your colonoscopy. Do NOT eat any solid foods. Drink at least 8 ounces of clear liquids every hour after waking up. The clear liquids you can drink include: Clear Liquid (NO RED LIQUIDS) DO NOT DRINK Gatorade, Pedialyte or Powerade Clear broth or bouillon Coffee or tea (no milk or non-dairy creamer) Carbonated and non-carbonated soft drinks Attila-Aid or other fruit flavored drinks Strained fruit juices (no pulp) Jell-O, popsicles, hard candy Water Alcohol Milk or non-dairy creamers Noodles or vegetables in soup Juice with pulp Liquid you cannot see through Do not use tobacco/vaping products The bowel preparation solution will be consumed in two parts. Mix the solution the evening before your colonoscopy and refrigerate before drinking. You may add the flavor pack that came with the bowel preparation. Do NOT add ice, sugar or any other flavorings to the solution. Part 1 At 6:00 PM - Evening before your colonoscopy Drink an 8-oz glass of bowel preparation every 10 minutes for a total of 8 glasses. You may continue to drink clear liquids until midnight. Part 2 On the day of your colonoscopy you may drink clear liquids up to (three) 3 hours before your procedure. 4 1/2 hours before your colonoscopy Drink an 8-oz glass of bowel preparation every 10 minutes for a total of 8 glasses. Fifteen (15) minutes later, drink an 8-oz glass of clear liquids every 15 minutes for a total of 2 glasses. You may continue to drink clear liquids up to (three) 3 hours before your exam. 2 02/2019 documented in this encounter [facility] 11-29-2021 History of Presen t illness Narrative CHIEF COMPLAINT: Patient presents with: Constipation: Stringy stools feels like he possibly has a blockage. HPI Neo Interiano is a 76 year old male here today for constipation (Stringy stool hard to push out. XR/Labs 07/18/21 in [facility]). Colonoscopy 04/07/2018: Impression: - Diverticulosis in the sigmoid colon. No specimens collected. Patient reports he is still constipated and straining a lot with stools. He reports he tried the Movantik and reports this did not help with constipation. PAtient is very frustrated because the medication was expensive and is not helping. Denies black stools or blood in stools. He reports daily BM small amounts. Has tried Senna and fiber (metamucil), suppositories without relief. Patient reports he has chronic back pain and takes oxycodone. Current Outpatient Medications Medication Sig SENNA PLUS 8.6-50 mg per tablet take 1 tablet by mouth at bedtime for constipation naloxegol (MOVANTIK) 25 mg tablet Take 1 tablet by mouth once daily. aspirin 325 mg tablet 325 mg. ACCU-CHEK GUIDE TEST STRIPS test strip TEST BLOOD SUGAR four times a day for FLUCTUATING BLOOD SUGARS azelastine (ASTELIN,ASTEPRO) 0.1% nasal spray oxyCODONE-acetaminophen (PERCOCET) 7.5-[address] (PROTONIX) 40 mg tablet omega-3 acid ethyl esters (LOVAZA) 1 gram capsule nitroglycerin sublingual (NITROQUICK) 0.4 mg SL tablet 0.4 mg. diclofenac sodium (VOLTAREN) 1 % topical gel montelukast (SINGULAIR) 10 mg tablet Take 10 mg by mouth once daily. furosemide (LASIX) 40 mg tablet 40 mg as needed. clopidogrel (PLAVIX) 75 mg tablet Take 1 tablet by mouth once daily. atorvastatin (LIPITOR) 40 mg tablet Take 1 tablet by mouth daily at bedtime. insulin NPH-insulin regular (HumuLIN 70/30) pen Inject 70 Units subcutaneously twice daily with meals. gabapentin (NEURONTIN) 800 mg tablet Take 1 tablet by mouth three times daily for 30 days. celecoxib (CELEBREX) 200 mg capsule Take 200 mg by mouth once daily. traZODone (DESYREL) 100 mg tablet Take 200 mg by mouth daily at bedtime. carbidopa-levodopa (SINEMET 25-250) 25-250 mg per tablet Take 1 tablet by mouth once daily. Ascorbic Acid 1,000 mg tablet Take 1,000 mg by mouth twice daily. clobetasol (TEMOVATE) 0.05 % ointment Apply 1 application to affected area twice daily. Apply twice daily to penis for 2 weeks, then no applications for to weeks, then repeat twice daily for 2 weeks tamsulosin ER (FLOMAX) 0.4 mg cp24 Take 1 capsule by mouth once daily. docusate sodium (COLACE) 100 mg capsule Take 1 capsule by mouth twice daily. While taking narcotics to prevent constipation pioglitazone (ACTOS) 45 mg tablet Take 22.5 mg by mouth once daily. olmesartan (BENICAR) 40 mg tablet Take 20 mg by mouth once daily. citalopram (CELEXA) 40 mg tablet Take 40 mg by mouth once daily. MULTI-VITAMIN ORAL Take 1 tablet by mouth once daily. No current facility-administered medications for this visit. ALLERGIES No Known Allergies Social History Tobacco Use Smoking status: Former Packs/day: 2.00 Years: 20.00 Pack years: 40.00 Types: Cigarettes Quit date: 05/05/1975 Years since quittin.6 Smokeless tobacco: Never Vaping Use Vaping Use: Never used Substance Use Topics Alcohol use: Yes Comment: rare Drug use: No PAST MEDICAL HISTORY Diagnosis Date Back pain Colon polyps Diabetes mellitus (HCC) Ex-smoker quit in 1975 Gallstones Hemorrhoids Hypertension MVP (mitral valve prolapse) Neuropathy S/P CABG x 5 2003 PAST SURGICAL HISTORY Procedure Laterality Date CATARACT EXTRACTION HX CHOLECYSTECTOMY COLONOSCOPY COLONOSCOPY SCREENING 04/07/2018 Diverticulosis PAST SURGICAL HISTORY OF 2003 5V CABG in 2003 S $ PROSTHESIS PENILE INFLATABLE SHX AORTIC VALVE REPLACEMENT SINUS SURGERY HX FAMILY HISTORY Problem Relation Age of Onset Hypertension Mother Hyperlipidemia Mother Diabetes Mother Stroke Mother Hypertension Father Hyperlipidemia Father Diabetes Father Heart Failure Father Diabetes Sister Diabetes Sister Diabetes Sister Cancer Sister brain Diabetes Brother Colon Cancer No Family History REVIEW OF SYSTEMS Review of Systems Constitutional: Positive for activity change and appetite change. Gastrointestinal: Positive for constipation. Change in bowel habits All other systems reviewed and are negative. PHYSICAL EXAM BP 118/70 Pulse 70 Ht 5' 11 (1.80m) Wt 270 lb (122.5kg) BMI 37.67 kg/(m^2). Physical Exam Constitutional: Appearance: Normal appearance. He is obese. HENT: Head: Normocephalic and atraumatic. Eyes: Extraocular Movements: Extraocular movements intact. Pupils: Pupils are equal, round, and reactive to light. Cardiovascular: Rate and Rhythm: Normal rate and regular rhythm. Pulses: Normal pulses. Heart sounds: Normal heart sounds. Pulmonary: Effort: Pulmonary effort is normal. Breath sounds: Normal breath sounds. Abdominal: General: Abdomen is flat. Bowel sounds are normal. There is distension. Palpations: Abdomen is soft. Musculoskeletal: General: Normal range of motion. Cervical back: Normal range of motion and neck supple. Skin: General: Skin is warm and dry. Neurological: General: No focal deficit present. Mental Status: He is alert and oriented to person, place, and time. Psychiatric: Mood and Affect: Mood normal. Behavior: Behavior normal. Assessment/Plan (K59.00) Constipation, unspecified constipation type (primary encounter diagnosis) 1. Constipation, unspecified constipation type The plan will be try to clean out with bowel prep - first get XR ABD to confirm constipation - bowel prep - repeat XR ABD - bowel regimen - XR ABDOMEN 1V SUPINE; Future Follow up in office 3 months/PRN. Recommended to please call office/go to ER if fever, chills, chest pain, SOB, diarrhea, nausea, emesis, worsening abdominal pain, dehydration occurs I spent a total of 30 minutes on the date of the service which included preparing to see the patient, [id number] patient care, completing clinical documentation, obtaining and/or reviewing separately obtained history, performing a medically appropriate examination, counseling and educating the patient/family/caregiver, ordering medications, tests, or procedures, communicating with other HCPs (not separately reported), independently interpreting results (not separately reported), communicating results to the patient/family/caregiver, and care coordination (not separately reported). Nabila Lambert APRN.CNP December 03, 2021 11:06 PM documented in this encounter [facility] 11-02-2021 Note HNO ID: [id number] Author: RT Chastity(R) Service: ? Author Type: Icu Manager Type: Progress Notes Filed: 11/02/2021 9:51 AM Note Text: Radiology Service Progress Note PATIENT NAME: Neo Interiano DATE OF SERVICE: November 02, 2021 TIME: 9:51 AM PATIENT IDENTITY VERIFICATION COMPLETED USING TWO (2) IDENTIFIERS: Name and Date of confirmed by patient verbally. FALL SCREENING: Has the patient had 2 falls in the last year or 1 fall with injury or currently using an Ambulatory Assistive Device (Walker, Cane, Wheelchair, Crutches, etc.)? Yes, Patient High Risk for Falls What interventions were put in place to prevent falls during this visit? Offered Assistance with Transfers/Clothing and Increased Observations by Caregivers PATIENT GENDER DATA: Male PATIENT RELEVANT IMPLANT DATA REVIEWED: Not Applicable RADIOLOGY DEPARTMENT: Ultrasound PERIPHERAL IV DATA: Not applicable SIGNED BY: RT Chastity(R) November 02, 2021 9:51 AM [facility] 11-02-2021 History of Presen t illness Narrative Radiology Service Progress Note PATIENT NAME: Neo Interiano DATE OF SERVICE: November 02, 2021 TIME: 9:51 AM PATIENT IDENTITY VERIFICATION COMPLETED USING TWO (2) IDENTIFIERS: Name and Date of confirmed by patient verbally. FALL SCREENING: Has the patient had 2 falls in the last year or 1 fall with injury or currently using an Ambulatory Assistive Device (Walker, Cane, Wheelchair, Crutches, etc.)? Yes, Patient High Risk for Falls What interventions were put in place to prevent falls during this visit? Offered Assistance with Transfers/Clothing and Increased Observations by Caregivers PATIENT GENDER DATA: Male PATIENT RELEVANT IMPLANT DATA REVIEWED: Not Applicable RADIOLOGY DEPARTMENT: Ultrasound PERIPHERAL IV DATA: Not applicable SIGNED BY: RT Chastity(R) November 02, 2021 9:51 AM documented in this encounter [facility] 11-01-2021 Note HNO ID: [id number] Author: Maurilio Sadlana MD Service: ? Author Type: Physician Type: Progress Notes Filed: 11/01/2021 9:36 AM Note Text: CHIEF COMPLAINT: Patient presents with: Constipation: Stringy stool hard to push out. [facility] Neo Interiano is a 76 year old male here today for Constipation (Stringy stool hard to push out. XR/Labs 07/18/21 in [facility]) Constipation X 2 months Small and less frequent Tried metamucil and senna Miralax did not help Tired suppositories which has not helped much Excessive straining and incomplete evacuation On chronic oxycodone for back injury Comes with pain in the lower abd -not better after moving the bowels S/p cholecystectomy Excessive pain in the scrotum during intercourse-prosthesis in place Colonoscopy 04/07/18 Multiple medium-mouthed diverticula were found in the sigmoid colon. Impression: - Diverticulosis in the sigmoid colon. - No specimens collected. Current Outpatient Medications Medication Sig SENNA PLUS 8.6-50 mg per tablet take 1 tablet by mouth at bedtime for constipation aspirin 325 mg tablet 325 mg. ACCU-CHEK GUIDE TEST STRIPS test strip TEST BLOOD SUGAR four times a day for FLUCTUATING BLOOD SUGARS azelastine (ASTELIN,ASTEPRO) 0.1% nasal spray oxyCODONE-acetaminophen (PERCOCET) 7.5-[address] (PROTONIX) 40 mg tablet omega-3 acid ethyl esters (LOVAZA) 1 gram capsule nitroglycerin sublingual (NITROQUICK) 0.4 mg SL tablet 0.4 mg. diclofenac sodium (VOLTAREN) 1 % topical gel montelukast (SINGULAIR) 10 mg tablet Take 10 mg by mouth once daily. furosemide (LASIX) 40 mg tablet 40 mg as needed. clopidogrel (PLAVIX) 75 mg tablet Take 1 tablet by mouth once daily. atorvastatin (LIPITOR) 40 mg tablet Take 1 tablet by mouth daily at bedtime. insulin NPH-insulin regular (HumuLIN 70/30) pen Inject 70 Units subcutaneously twice daily with meals. gabapentin (NEURONTIN) 800 mg tablet Take 1 tablet by mouth three times daily for 30 days. celecoxib (CELEBREX) 200 mg capsule Take 200 mg by mouth once daily. traZODone (DESYREL) 100 mg tablet Take 200 mg by mouth daily at bedtime. carbidopa-levodopa (SINEMET 25-250) 25-250 mg per tablet Take 1 tablet by mouth once daily. Ascorbic Acid 1,000 mg tablet Take 1,000 mg by mouth twice daily. clobetasol (TEMOVATE) 0.05 % ointment Apply 1 application to affected area twice daily. Apply twice daily to penis for 2 weeks, then no applications for to weeks, then repeat twice daily for 2 weeks tamsulosin ER (FLOMAX) 0.4 mg cp24 Take 1 capsule by mouth once daily. docusate sodium (COLACE) 100 mg capsule Take 1 capsule by mouth twice daily. While taking narcotics to prevent constipation pioglitazone (ACTOS) 45 mg tablet Take 22.5 mg by mouth once daily. olmesartan (BENICAR) 40 mg tablet Take 20 mg by mouth once daily. citalopram (CELEXA) 40 mg tablet Take 40 mg by mouth once daily. MULTI-VITAMIN ORAL Take 1 tablet by mouth once daily. naloxegol (MOVANTIK) 25 mg tablet Take 1 tablet by mouth once daily. No current facility-administered medications for this visit. ALLERGIES No Known Allergies Social History Tobacco Use Smoking status: Former Packs/day: 2.00 Years: 20.00 Pack years: 40.00 Types: Cigarettes Quit date: 05/05/1975 Years since quittin.5 Smokeless tobacco: Never Vaping Use Vaping Use: Never used Substance Use Topics Alcohol use: Yes Comment: rare Drug use: No PAST MEDICAL HISTORY Diagnosis Date Back pain Colon polyps Diabetes mellitus (HCC) Ex-smoker quit in 1975 Gallstones Hemorrhoids Hypertension MVP (mitral valve prolapse) Neuropathy S/P CABG x 5 2003 PAST SURGICAL HISTORY Procedure Laterality Date CATARACT EXTRACTION HX CHOLECYSTECTOMY COLONOSCOPY COLONOSCOPY SCREENING 04/07/2018 Diverticulosis PAST SURGICAL HISTORY OF 2003 5V CABG in 2003 S $ PROSTHESIS PENILE INFLATABLE SHX AORTIC VALVE REPLACEMENT SINUS SURGERY HX FAMILY HISTORY Problem Relation Age of Onset Hypertension Mother Hyperlipidemia Mother Diabetes Mother Stroke Mother Hypertension Father Hyperlipidemia Father Diabetes Father Heart Failure Father Diabetes Sister Diabetes Sister Diabetes Sister Cancer Sister brain Diabetes Brother Colon Cancer No Family History REVIEW OF SYSTEMS Review of Systems Gastrointestinal: Positive for abdominal distention and nausea. All other systems reviewed and are negative. PHYSICAL EXAM BP 128/72 Pulse 90 Ht 5' 11 (1.80m) Wt 268 lb (121.6kg) BMI 37.39 kg/(m2). Physical Exam General: Alert, oriented, No acute distress. Skin: No rash; warm. Head: Normocephalic, atraumatic. Eyes: EOMI, PERRLA. Lymph: No cervical lymphadenopathy. Thyroid: Neck supple. No thyromegaly. Heart: S1, S2. No murmurs, gallops or rubs. Lungs: Clear to auscultation bilaterally. No wheezes or crackles. Abdomen: Soft, tende (more content not included)... [facility] 11-01-2021 History of Presen t illness Narrative CHIEF COMPLAINT: Patient presents with: Constipation: Stringy stool hard to push out. [facility] Neo Interiano is a 76 year old male here today for Constipation (Stringy stool hard to push out. [facility] Constipation X 2 months Small and less frequent Tried metamucil and senna Miralax did not help Tired suppositories which has not helped much Excessive straining and incomplete evacuation On chronic oxycodone for back injury Comes with pain in the lower abd -not better after moving the bowels S/p cholecystectomy Excessive pain in the scrotum during intercourse-prosthesis in place Colonoscopy 04/07/18 Multiple medium-mouthed diverticula were found in the sigmoid colon. Impression: - Diverticulosis in the sigmoid colon. - No specimens collected. Current Outpatient Medications Medication Sig SENNA PLUS 8.6-50 mg per tablet take 1 tablet by mouth at bedtime for constipation aspirin 325 mg tablet 325 mg. ACCU-CHEK GUIDE TEST STRIPS test strip TEST BLOOD SUGAR four times a day for FLUCTUATING BLOOD SUGARS azelastine (ASTELIN,ASTEPRO) 0.1% nasal spray oxyCODONE-acetaminophen (PERCOCET) 7.5-[address] (PROTONIX) 40 mg tablet omega-3 acid ethyl esters (LOVAZA) 1 gram capsule nitroglycerin sublingual (NITROQUICK) 0.4 mg SL tablet 0.4 mg. diclofenac sodium (VOLTAREN) 1 % topical gel montelukast (SINGULAIR) 10 mg tablet Take 10 mg by mouth once daily. furosemide (LASIX) 40 mg tablet 40 mg as needed. clopidogrel (PLAVIX) 75 mg tablet Take 1 tablet by mouth once daily. atorvastatin (LIPITOR) 40 mg tablet Take 1 tablet by mouth daily at bedtime. insulin NPH-insulin regular (HumuLIN 70/30) pen Inject 70 Units subcutaneously twice daily with meals. gabapentin (NEURONTIN) 800 mg tablet Take 1 tablet by mouth three times daily for 30 days. celecoxib (CELEBREX) 200 mg capsule Take 200 mg by mouth once daily. traZODone (DESYREL) 100 mg tablet Take 200 mg by mouth daily at bedtime. carbidopa-levodopa (SINEMET 25-250) 25-250 mg per tablet Take 1 tablet by mouth once daily. Ascorbic Acid 1,000 mg tablet Take 1,000 mg by mouth twice daily. clobetasol (TEMOVATE) 0.05 % ointment Apply 1 application to affected area twice daily. Apply twice daily to penis for 2 weeks, then no applications for to weeks, then repeat twice daily for 2 weeks tamsulosin ER (FLOMAX) 0.4 mg cp24 Take 1 capsule by mouth once daily. docusate sodium (COLACE) 100 mg capsule Take 1 capsule by mouth twice daily. While taking narcotics to prevent constipation pioglitazone (ACTOS) 45 mg tablet Take 22.5 mg by mouth once daily. olmesartan (BENICAR) 40 mg tablet Take 20 mg by mouth once daily. citalopram (CELEXA) 40 mg tablet Take 40 mg by mouth once daily. MULTI-VITAMIN ORAL Take 1 tablet by mouth once daily. naloxegol (MOVANTIK) 25 mg tablet Take 1 tablet by mouth once daily. No current facility-administered medications for this visit. ALLERGIES No Known Allergies Social History Tobacco Use Smoking status: Former Packs/day: 2.00 Years: 20.00 Pack years: 40.00 Types: Cigarettes Quit date: 05/05/1975 Years since quittin.5 Smokeless tobacco: Never Vaping Use Vaping Use: Never used Substance Use Topics Alcohol use: Yes Comment: rare Drug use: No PAST MEDICAL HISTORY Diagnosis Date Back pain Colon polyps Diabetes mellitus (HCC) Ex-smoker quit in 1975 Gallstones Hemorrhoids Hypertension MVP (mitral valve prolapse) Neuropathy S/P CABG x 5 2003 PAST SURGICAL HISTORY Procedure Laterality Date CATARACT EXTRACTION HX CHOLECYSTECTOMY COLONOSCOPY COLONOSCOPY SCREENING 04/07/2018 Diverticulosis PAST SURGICAL HISTORY OF 2003 5V CABG in 2003 S $ PROSTHESIS PENILE INFLATABLE SHX AORTIC VALVE REPLACEMENT SINUS SURGERY HX FAMILY HISTORY Problem Relation Age of Onset Hypertension Mother Hyperlipidemia Mother Diabetes Mother Stroke Mother Hypertension Father Hyperlipidemia Father Diabetes Father Heart Failure Father Diabetes Sister Diabetes Sister Diabetes Sister Cancer Sister brain Diabetes Brother Colon Cancer No Family History REVIEW OF SYSTEMS Review of Systems Gastrointestinal: Positive for abdominal distention and nausea. All other systems reviewed and are negative. PHYSICAL EXAM BP 128/72 Pulse 90 Ht 5' 11 (1.80m) Wt 268 lb (121.6kg) BMI 37.39 kg/(m^2). Physical Exam General: Alert, oriented, No acute distress. Skin: No rash; warm. Head: Normocephalic, atraumatic. Eyes: EOMI, PERRLA. Lymph: No cervical lymphadenopathy. Thyroid: Neck supple. No thyromegaly. Heart: S1, S2. No murmurs, gallops or rubs. Lungs: Clear to auscultation bilaterally. No wheezes or crackles. Abdomen: Soft, tender in the lower abdomen, nondistended. Bowel sounds are normal. No organomegaly. Genitalia: Prosthesis in place, questionable hernia in the left inguinal area, tenderness to palpation over both testicles Rectal exam: Decreased squeeze pressure and resting pressure Musculoskeletal: No joint swelling or effusion. Extremities: No cyanosis, clubbing or edema. Mental: Mood appropriate. Not depressed. Neuro: Cranial nerves II through XII intact. ASSESSMENT: Pain in both testicles (primary encounter diagnosis) Lower abdominal pain Chronic constipation Outlet dysfunction constipation Pelvic floor dysfunction Narcotic bowel syndrome (hcc) History of cholecystectomy PLAN: -Check scrotum ultrasound to evaluate excessive pain in the scrotum -Start Movantik 25 mg daily -Might benefit from Linzess in the future if he does not respond to another exposure -Continue Metamucil -Might be a good candidate for pelvic floor evaluation -Minimize narcotics use if possible This office note has been created using Coin, a speech recognition software program, and may contain errors including punctuation, grammar, spelling, gender, and inappropriate words or phrases that pertain to the sytem. Maurilio Saldana MD Office Visit on 11/01/21 US SCROTUM AND CONTENTS US DOPPLER COMPLETE No follow-ups on file. Maurilio Saldana MD DATE: 11/01/21 TIME: 9:02 AM documented in this encounter [facility] Evaluation + Plan note Future Appointments Appointment Date:07/17/2021 09:00:00 AM Scheduled Provider:OBEY HOWELL DO Location:[facility] Appointment Type:PC OV [facility] Evaluation + Plan note Future Appointments Appointment Date:01/15/2022 09:30:00 AM Scheduled Provider:OBEY HOWELL DO Location:[facility] Appointment Type:PC OV Future Scheduled TestsXR Abdomen 2 Views w/ Oblique 07/17/21 [facility] Evaluation + Plan note Future Appointments Appointment Date:09/12/2022 09:15:00 AM Scheduled Provider:OBEY HOWELL DO Location:[facility] Appointment Type:PC OV Follow Up Future Scheduled TestsMicroalbumin Level Urine 03/14/22XR Abdomen 2 Views w/ Oblique 07/17/21 [facility] documented in this encounter [facility] note* Diagnosis Pain in both testicles Lower abdominal pain Abdominal pain, other specified site Chronic constipation Unspecified constipation Outlet dysfunction constipation Pelvic floor dysfunction Pelvic muscle wasting Narcotic bowel syndrome (HCC) documented in this encounter [facility] note* Diagnosis Constipation, unspecified constipation type documented in this encounter [facility] note* Diagnosis Constipation, unspecified constipation type- Primary documented in this encounter [facility] note* Diagnosis Constipation, unspecified constipation type- Primary documented in this encounter [facility] note* Diagnosis Abnormal findings on diagnostic imaging of abdomen- Primary Nonspecific (abnormal) findings on radiological and other examination of abdominal area, including retroperitoneum documented in this encounter [facility] note* Diagnosis Abnormal x-ray of abdomen- Primary Nonspecific (abnormal) findings on radiological and other examination of abdominal area, including retroperitoneum [facility] Narrative No data available for this section [facility] Discharge instructions No data available for this section [facility] note No data available for this section [facility] Reason for referral (narrative)* Diagnostic Procedure Only (Routine) - Authorized Specialty Diagnoses / Procedures Referred By Philipp t Referred To Contact US IMAGING Diagnoses Pain in both testicles Lower abdominal pain Chronic constipation Outlet dysfunction constipation Pelvic floor dysfunction Narcotic bowel syndrome (HCC) Procedures US DOPPLER COMPLETE DUP-SCAN ARTL NACHO ABDL/PEL/SCROT&/[place] [address] [place] [address] Us Imaging Referral ID Status Reason Start Date Expiration Date Visits Requested Visits Authorized [id number] Authorized Auto-Generat ed Referral 11/01/2021 12/01/2022 1 1 * Diagnostic Procedure Only (Routine) - Authorized Specialty Diagnoses / Procedures Referred By Contac t Referred To Contact US IMAGING Diagnoses Pain in both testicles Lower abdominal pain Chronic constipation Outlet dysfunction constipation Pelvic floor dysfunction Narcotic bowel syndrome (HCC) Procedures US SCROTUM AND CONTENTS US SCROTUM & CONTENTS Maurilio Saldana MD [facility] [place] [address] Us Imaging Referral ID Status Reason Start Date Expiration Date Visits Requested Visits Authorized [id number] Authorized Auto-Generat ed Referral 11/01/2021 12/01/2022 1 1 [facility] for referral (narrative)* Diagnostic Procedure Only (Routine) - Closed Specialty Diagnoses / Procedures Referred By Contac t Referred To Contact US IMAGING Diagnoses Pain in both testicles Lower abdominal pain Chronic constipation Outlet dysfunction constipation Pelvic floor dysfunction Narcotic bowel syndrome (HCC) Procedures US DOPPLER COMPLETE DUP-SCAN ARTL NACHO ABDL/PEL/SCROT&/RPR ORGN COM Maurilio Saldana MD [address] [place] [address] Us Imaging Referral ID Status Reason Start Date Expiration Date V isits Requested Visits Authorized [id number] Closed Auto-Generate d Referral 11/01/2021 12/01/2022 1 1 * Diagnostic Procedure Only (Routine) - Closed Specialty Diagnoses / Procedures Referred By Contac t Referred To Contact US IMAGING Diagnoses Pain in both testicles Lower abdominal pain Chronic constipation Outlet dysfunction constipation Pelvic floor dysfunction Narcotic bowel syndrome (HCC) Procedures US SCROTUM AND CONTENTS US SCROTUM & CONTENTS Maurilio Saldana MD [address] [place] [address] Us Imaging Referral ID Status Reason Start Date Expiration Date V isits Requested Visits Authorized [id number] Closed Auto-Generate d Referral 11/01/2021 12/01/2022 1 1 [facility] for referral (narrative)* Diagnostic Procedure Only (Routine) - Closed Specialty Diagnoses / Procedures Referred By Contac t Referred To Contact XR IMAGING Diagnoses Constipation, unspecified constipation type Procedures XR ABDOMEN 1V SUPINE RADIOLOGIC EXAM ABDOMEN 1 VIEW Nabila Lambert APRN.CLOD PULLER [address] [place] [address] Xr Imaging Referral ID Status Reason Start Date Expiration Date V isits Requested Visits Authorized [id number] Closed Auto-Generate d Referral 11/29/2021 12/29/2022 1 1 [facility] for referral (narrative)* Diagnostic Procedure Only (Routine) - Closed Specialty Diagnoses / Procedures Referred By Contac t Referred To Contact XR IMAGING Diagnoses Constipation, unspecified constipation type Procedures XR ABDOMEN 1V SUPINE RADIOLOGIC EXAM ABDOMEN 1 VIEW Nabila Lambert APRN.CNP [address] [place] [address] Xr Imaging Referral ID Status Reason Start Date Expiration Date V isits Requested Visits Authorized [id number] Closed Auto-Generate d Referral 11/29/2021 12/29/2022 1 1 [facility] for referral (narrative)* Diagnostic Procedure Only (Routine) - Pending Review Specialty Diagnoses / Procedures Referred By Contac t Referred To Contact XR IMAGING Diagnoses Constipation, unspecified constipation type Procedures XR ABDOMEN 1V SUPINE RADIOLOGIC EXAM ABDOMEN 1 VIEW Nabila Lambert APRN.CLOD PULLER [address] [facility] [place] [address] Xr Imaging Referral ID Status Reason Start Date Expiration Date Visits Requested Visits Authorized [id number] Pending Review Auto-Generat ed Referral 12/04/2021 01/03/2023 1 1 [facility] for visit Narrative* Diagnostic Procedure Only (Routine) - Closed Specialty Diagnoses / Procedures Referred By Cristoac sebastian Referred To Contact XR IMAGING Diagnoses Constipation, unspecified constipation type Procedures XR ABDOMEN 1V SUPINE RADIOLOGIC EXAM ABDOMEN 1 VIEW Nabila Lambert APRN.CLOD PULLER [address] [place] [address] Xr Imaging Referral ID Status Reason Start Date Expiration Date V isits Requested Visits Authorized [id number] Closed Auto-Generate d Referral 11/29/2021 12/29/2022 1 1 [facility] Summary Purpose Family History No Family History Records FoundNo Family History Records FoundNo Family History Records FoundNo Family History Records FoundNo Family History Records FoundNo Family History Records Found Advance Directives Documents on File Type Date Recorded Patient School Bus Aide Expl anation Advance Directive(s) 11/09/2019 3:32 PM Advance Directive(s) 11/01/2019 3:47 PM Documents on File Type Date Recorded Patient School Bus Aide Expl anation Advance Directive(s) 11/09/2019 3:32 PM Advance Directive(s) 11/01/2019 3:47 PM Hospital Course Note HNO ID: [id number] Author: Christine Joshi DO Service: Hospital Medicine Author Type: Physician Type: Discharge Summary Filed: 11/04/2019 2:43 PM Note Text: DISCHARGE SUMMARY PATIENT NAME: Neo Interiano Code Status: Not on file Highest Readmission Risk Score: 17 The 30 day readmissions risk score is derived from an internally validated risk model which evaluates patient level characteristics, utilization history, medication orders and lab results up until the day of discharge. Patients with a score of 40 or above are considered highest risk for readmission. Specific patient level drivers will be listed at the bottom of the summary. Admission Information Admission Information ADMIT DATE: 10/29/2019 DISCHARGE DATE: 11/04/2019 MY DOCTORS AND MEDICAL TEAM: My Main Hospital Doctor: Royal Joshi DO Primary Care Provider: [facility] My Medical Team Members: Treatment Team: Attending Provider: Royal Joshi DO Primary Service: [employer] Consulting: Zander (more content not included)... Reason for Referral Specialty Diagnoses / Procedures Referred By Contac t Referred To Contact CT IMAGING Diagnoses Abnormal findings on diagnostic imaging of abdomen Procedures CT ABD/PEL W IVCON CT ABD & PELVIS W/CONTRAST Nabila Lambert, CASH POSTER.CLOD PULLER [address] [facility] [place] [place] [address] Ct Imaging Referral ID Status Reason Start Date Expiration Date Visits Requested Visits Authorized [id number] Pending Review Auto-Generat ed Referral 12/05/2021 01/04/2023 1 1 Additional Source Comments (unrecognized sect ion and content) No Status Records FoundNo Status Records FoundNo Status Records FoundNo Status Records FoundNo Status Records FoundNo Status Records Found INFORMATION SOURCE (unrecogn ized section and content) DATE CREATED AUTHOR AUTHOR'S ORGANIZ ATION 09/10/2017 [facility] DATE CREATED AUTHOR AUTHOR'S ORGANIZ ATION 05/05/2018 [facility] DATE CREATED AUTHOR AUTHOR'S ORGANIZ ATION 01/15/2020 [facility] DATE CREATED AUTHOR AUTHOR'S ORGANIZ ATION 01/23/2022 [facility] DATE CREATED AUTHOR AUTHOR'S ORGANIZ ATION 04/13/2023 [facility] ([place]) Care Team (unrecognized sect ion and content) X Ray Examiner Of Aircraft Relationship Specialty Start Date End Date [facility] [address] [place] [address] PCP - General 10/29/19 Max Hooks MD [address] [place] [place] [address] Primary Staff Physician Cardiology 06/02/18 [employer] Ray Examiner Of Aircraft Relationship Specialty Start Date End Date [address] [address] PCP - General 10/29/19 Max Hooks MD [address] [place] [address] Primary Staff Physician Cardiology 06/02/18 X Ray Examiner Of Aircraft Relationship Specialty Start Date End Date [address] [address] PCP - General 10/29/19 Max Hooks MD [address] [place] [address] Primary Staff Physician Cardiology 06/02/18 X Ray Examiner Of Aircraft Relationship Specialty Start Date End Date [address] [address] PCP - General 10/29/19 Max Hooks MD [address] [place] [address] Primary Staff Physician Cardiology 06/02/18 X Ray Examiner Of Aircraft Relationship Specialty Start Date End Date [address] [address] PCP - General 10/29/19 Max Hooks MD [address] [place] [address] Primary Staff Physician Cardiology 06/02/18 X Ray Examiner Of Aircraft Relationship Specialty Start Date End Date [address] [address] PCP - General 10/29/19 Max Hooks MD [address] [place] [address] Primary Staff Physician Cardiology 06/02/18 X Ray Examiner Of Aircraft Relationship Specialty Start Date End Date [facility] [address] [place] [address] PCP - General 10/29/19 Max Hooks MD [address] [place], [place] [id number] Primary Staff Physician Cardiology 06/02/18 X Ray Examiner Of Aircraft Relationship Specialty Start Date End Date [facility] [address] [place] [address] PCP - General 10/29/19 Max Hooks MD [address] [place] [address] Primary Staff Physician Cardiology 06/02/18 X Ray Examiner Of Aircraft Relationship Specialty Start Date End Date [facility] [address] [place] [address] PCP - General 10/29/19 Max Hooks MD [address] [place] [address] Primary Staff Physician Cardiology 06/02/18 Source Comments (unrecognize d section and content) In the event this informatio n is protected by the [facility] Confidentiality of Alcohol and Drug Abuse Patient Records regulations: The Federal rules restrict any use of the information to criminally investigate or prosecute any alcohol or drug abuse patient.[facility] the event this information is protected by the Federal Confidentiality of Alcohol and Drug Abuse Patient Records regulations: The Federal rules restrict any use of the information to criminally investigate or prosecute any alcohol or drug abuse patient.[facility] the event this information is protected by the Federal Confidentiality of Alcohol and Drug Abuse Patient Records regulations: The Federal rules restrict any use of the information to criminally investigate or prosecute any alcohol or drug abuse patient.[facility] the event this information is protected by the Federal Confidentiality of Alcohol and Drug Abuse Patient Records regulations: The Federal rules restrict any use of the information to criminally investigate or prosecute any alcohol or drug abuse patient.[facility] the event this information is protected by the Federal Confidentiality of Alcohol and Drug Abuse Patient Records regulations: The Federal rules restrict any use of the information to criminally investigate or prosecute any alcohol or drug abuse patient.[facility] the event this information is protected by the Federal Confidentiality of Alcohol and Drug Abuse Patient Records regulations: The Federal rules restrict any use of the information to criminally investigate or prosecute any alcohol or drug abuse patient.[facility] the event this information is protected by the Federal Confidentiality of Alcohol and Drug Abuse Patient Records regulations: The Federal rules restrict any use of the information to criminally investigate or prosecute any alcohol or drug abuse patient.[facility] the event this information is protected by the Federal Confidentiality of Alcohol and Drug Abuse Patient Records regulations: The Federal rules restrict any use of the information to criminally investigate or prosecute any alcohol or drug abuse patient.[facility] the event this information is protected by the Federal Confidentiality of Alcohol and Drug Abuse Patient Records regulations: The Federal rules restrict any use of the information to criminally investigate or prosecute any alcohol or drug abuse patient.[facility] the event this information is protected by the Federal Confidentiality of Alcohol and Drug Abuse Patient Records regulations: The Federal rules restrict any use of the information to criminally investigate or prosecute any alcohol or drug abuse patient.[facility] the event this information is protected by the Federal Confidentiality of Alcohol and Drug Abuse Patient Records regulations: The Federal rules restrict any use of the information to criminally investigate or prosecute any alcohol or drug abuse patient.[facility] the event this information is protected by the Federal Confidentiality of Alcohol and Drug Abuse Patient Records regulations: The Federal rules restrict any use of the information to criminally investigate or prosecute any alcohol or drug abuse patient.[facility] Reason for Visit (unrecogniz ed section and content) Reason Comments Radiology US Specialty Diagnoses / Procedures Referred By Contac t Referred To Contact US IMAGING Diagnoses Pain in both testicles Lower abdominal pain Chronic constipation Outlet dysfunction constipation Pelvic floor dysfunction Narcotic bowel syndrome (HCC) Procedures US DOPPLER COMPLETE DUP-SCAN ARTL NACHO ABDL/PEL/SCROT&/RPR ORGN COM Maurilio Saldana MD [address] [place] [address] Us Imaging Referral ID Status Reason Start Date Expiration Date V isits Requested Visits Authorized [id number] Closed Auto-Generate d Referral 11/01/2021 12/01/2022 1 1 Reason Comments Constipation Stringy stools feels like he possibly has a blockage. Reason Comments Results Reason Comments Lab Orders Reason Comments Results Reason Comments Patient Update Reason Comments Returning Patient's Call Care Team (unrecognized sect ion and content) Care Team Personnel Name: OBEY HOWELL DO Position: P4 Physician - Primary Care Member Role: Primary Care Physician Address: Address: [address] [place] [address] [place] Care Team Related Persons Name: JUAN CARLOSOBEY ROYA Address: Home [address] [place], [place] [id number] FOR RECORDS PERTAINING TO PATIENTS WHO ARE OR HAVE BEEN ENROLLED IN A CHEMICAL DEPENDENCY/SUBSTANCEABUSE PROGRAM, SOME INFORMATION MAY BE OMITTED. This clinical summary was aggregated from multiple sources. Caution should be exercised in using it in the provision of clinical care. This summary normalizes information from multiple sources, and as a consequence, information in this document may materially change the coding, format and clinical context of patient data. In addition, data may be omitted in some cases. CLINICAL DECISIONS SHOULD BE BASED ON THE PRIMARY CLINICAL RECORDS. [facility] [email or web address] provides no warranty or guarantee of the accuracy or completeness of information in this document.
--- NOTE | 2023-05-14 17:35 | STRESSREP ---
Stress Test Report Pharmacologic myocardial perfusion stress test. 77-year-old man with a history of chest pain Resting EKG demonstrates sinus rhythm with a rate of 67 bpm. Resting blood pressure is 138/90 mmHg. 0.4 mg of regadenoson was infused per usual protocol followed by rapid intravenous saline flush injection. Continuous EKG monitoring was performed. The maximum heart rate was 74 bpm which was 52% of max impacted heart rate the maximum workload was 1 metabolic equivalent. At rest there were no ST or T wave changes noted to suggest ischemia and at peak infusion nonspecific ST changes were noted which did not meet the criteria for ischemia. No clinical angina is noted. The final blood pressure was 138/7 mmHg. Myocardial perfusion protocol. 14.9 mCi of technetium 99m sestamibi was injected at rest. 0.4 mg of regadenoson was infused per usual protocol. At peak infusion 44 point mCi of technetium 99m sestamibi was injected stress images were obtained stress and rest images were reconstructed and compared in the short axis vertical long and horizontal long axis. Gated images were also obtained. Perfusion SPECT analysis: Review of the stress images demonstrate normal uptake of tracer noted in all areas of the myocardium. The resting images similar demonstrated normal uptake of tracer noted in all areas of the myocardium. No areas of reversibility are noted to suggest ischemia and no previous infarct is noted. Gated SPECT analysis: The gated ejection fraction is 67%. Conclusion: Number pharmacologic myocardial perfusion stress test. Preserved ejection fraction.
== END | disposition home or self-care (01) ==
LOC: CVS 06:12
PROVIDERS: PCP Preventive Medicine Occupational Medicine; Referring Provider Internal Medicine Cardiovascular Disease; Visit Provider Internal Medicine Cardiovascular Disease
DX: I25.119 Atherosclerotic heart disease of native coronary artery with unspecified angina pectoris (principal); R07.9 Chest pain, unspecified
CPT/HCPCS: 78452; 93017; A9500; A4216; J2785